=== PATIENT | female | born 1960 | race African-American/Black ===

== ENCOUNTER → 2023-12-09 12:09 | Outpatient (CLI) | payer OTHER, SELFPAY ==
--- NOTE | 2023-12-09 12:18 | DI.RAD.S_ITS ---
PROCEDURE: XR HAND RT MIN 3V INDICATIONS: Right Hand Pain TECHNIQUE: 3 views of the hand(s) acquired. COMPARISON: None. FINDINGS: Bones: No fractures or dislocations. Carpal bones are normally aligned. No suspicious bony lesions. Minimal diffuse interphalangeal joint space narrowing. No bony erosions. Soft tissues: No suspicious soft tissue calcifications. IMPRESSION: Minimal diffuse interphalangeal joint degeneration. Dictated by: Tylor Aguilar RR Interpreted: Marquis Pedersen MD on 12/09/2023 at 13:09 Transcribed by: DANIELA on 12/09/2023 at 13:16 Approved by: Marquis Pedersen M.D. on 12/09/2023 at 17:09
== END ==
LOC: RAD 12:16
PROVIDERS: PCP Family Medicine; Referring Provider Family Medicine; Visit Provider Family Medicine
DX: M79.641 Pain in right hand (principal)
CPT/HCPCS: 73130

== ENCOUNTER → 2024-01-06 14:37 | Outpatient (CLI) | payer OTHER, SELFPAY ==
--- NOTE | 2024-01-06 14:38 | DI.MG.S_ITS ---
BILATERAL DIGITAL SCREENING MAMMOGRAM 3D/2D WITH CAD: 01/06/2024 CLINICAL: Routine screening. Comparison is made to exams dated: 12/17/2022 mammogram, 12/16/2021 mammogram, and 12/16/2020 mammogram - [facility]. Both breasts are heterogeneously dense, which may obscure small masses (category c / 51-75% glandular tissue). Current study was also evaluated with a Computer Aided Detection (CAD) system. There is an asymmetry in the right breast anterior depth medial region seen on the craniocaudal view only. No other significant masses, calcifications, or other findings are seen in either breast. IMPRESSION: INCOMPLETE: NEEDS ADDITIONAL IMAGING EVALUATION The asymmetry in the right breast is indeterminate. Additional views with possible ultrasound are recommended. Based on the Tyrer Cuzick model (a risk assessment model) the patient's lifetime risk is 13.6% and her 10 year risk is 5.8%. According to the ACR, ACS, and NCCN guidelines, an annual breast MRI exam along with mammogram is recommended if the patient's lifetime risk is 20% or greater. This exam was interpreted at Station ID: [id number]. NOTE: For mammograms, a report in lay terms will be sent to the patient. Approximately 15% of breast malignancies will not be visualized mammographically. In the management of a palpable breast mass, a negative mammogram must not discourage biopsy of a clinically suspicious lesion. Electronically Signed By: Vish wise/dori:01/06/2024 15:20:31 letter sent: Additional Imaging Needed ACR BI-RADS Category 0: Incomplete 3340F
== END ==
PROVIDERS: PCP Family Medicine; Referring Provider Family Medicine; Visit Provider Family Medicine
DX: Z12.31 Encounter for screening mammogram for malignant neoplasm of breast (principal); N64.89 Other specified disorders of breast
CPT/HCPCS: 77063; 77067

== ENCOUNTER → 2024-04-03 13:30 | Outpatient (CLI) | payer OTHER, SELFPAY ==
--- NOTE | 2024-04-03 13:31 | DI.US.S_ITS ---
LIMITED ULTRASOUND OF RIGHT BREAST: 04/03/2024 CLINICAL: Follow up from addtional views. Comparison is made to exams dated: 04/03/2024 mammogram, 01/06/2024 mammogram - [facility], 12/17/2022 mammogram, and 12/16/2021 mammogram - [facility]. Color flow and real-time ultrasound of the right breast 2-4 o'clock region were performed. No significant abnormalities were seen sonographically in the right breast. There are several areas of normal glandular tissue amidst fibrous tissue without suspicious features. IMPRESSION: NEGATIVE There is no sonographic correlate to the patient's resolved screening mammogram findings, and no evidence of malignancy. Return to annual mammogram screening schedule is recommended. Findings and recommendations were conveyed to the patient at time of exam. This exam was interpreted at Station ID: [id number]. Electronically Signed By: Komal gifford/:04/03/2024 14:53:05 letter sent: Normal Exam Ultrasound BI-RADS: 1 Negative
--- NOTE | 2024-04-03 13:31 | DI.MG.S_ITS ---
UNILATERAL RIGHT DIGITAL DIAGNOSTIC MAMMOGRAM 3D/2D WITH ADDITIONAL VIEWS: 04/03/2024 CLINICAL: Additional evaluation requested from prior study. Comparison is made to exams dated: 01/06/2024 mammogram - [facility], 12/17/2022 mammogram, and 12/16/2021 mammogram - [facility]. The right breast is heterogeneously dense, which may obscure small masses (category c / 51-75% glandular tissue). With focal spot compression, and additional views, the abnormality seen in the right breast anterior depth medial region on screening mammography resolves. It is not reproducible with additional views. No other significant masses or calcifications are seen in the breast. IMPRESSION: INCOMPLETE: NEEDS ADDITIONAL IMAGING EVALUATION Resolution of screening mammography abnormality with additional views. Ultrasound evaluation to confirm resolution is recommended and was performed immediately following this exam. Based on the Tyrer Cuzick model (a risk assessment model) the patient's lifetime risk is 13.6% and her 10 year risk is 5.8%. According to the ACR, ACS, and NCCN guidelines, an annual breast MRI exam along with mammogram is recommended if the patient's lifetime risk is 20% or greater. This exam was interpreted at Station ID: [id number]. NOTE: For mammograms, a report in lay terms will be sent to the patient. Approximately 15% of breast malignancies will not be visualized mammographically. In the management of a palpable breast mass, a negative mammogram must not discourage biopsy of a clinically suspicious lesion. Electronically Signed By: Komal gifford/:04/03/2024 14:13:12 ACR BI-RADS Category 0: Incomplete 3340F
== END ==
PROVIDERS: PCP Family Medicine; Referring Provider Family Medicine; Visit Provider Family Medicine
DX: R92.8 Other abnormal and inconclusive findings on diagnostic imaging of breast (principal); R92.331 Mammographic heterogeneous density, right breast
CPT/HCPCS: 76642; 77065; G0279